=== PATIENT | male | born 1950 | race Caucasian/White ===

== ENCOUNTER 2017-06-23 10:45 | Emergency (ER) | payer OTHER, MEDICARE ==
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
[2017-06-23 13:24] VITALS: BP 104/66; PULSE 63; RESP 18; TEMP 98.1; O2SAT 94
== END 2017-06-23 13:25 | disposition home or self-care (01) ==
PROC: 0HQ0XZZ Repair Scalp Skin, External Approach (ICD-10-PCS; principal; 2017-06-23)
DX: S01.01XA Laceration without foreign body of scalp, initial encounter (principal); V18.4XXA Pedal cycle driver injured in noncollision transport accident in traffic accident, initial encounter; Y99.8 Other external cause status; Y93.55 Activity, bike riding

== ENCOUNTER 2017-07-28 07:10 | Inpatient (IN) | payer OTHER, MEDICARE ==
[~2017-07-28 07:10] MED LIST: ACETAMINOPHEN 325 MG TAB PO ONE; DEXAMETHASONE 4 MG/ML VIAL IVP ONE; FAMOTIDINE 20 MG TAB PO ONE; LIDOCAINE 1% 2 ML INJ ID PRN; LR 1,000 ML IV ONE; POVIDONE-IODINE 20 ML in SODIUM CL IRRIG SOLUTION 500 ML IRR ONE; ROPIVACAINE 0.2% 80 MG, EPINEPHrine 0.2 MG, KETOROLAC TROMETHAMINE 30 MG in BAG 0 ML IU ONE; TRANEXAMIC ACID 1,720 MG in NS 100 ML IV ONE; ceFAZolin 1 GM/5 ML SYR ONE; ceFAZolin 2 GM/DEXTROSE 100 ML IV ONE
--- NOTE | 2017-07-28 07:40 | PDHPUP ---
History & Physical Update H&P update statement: This history and physical update is based on an assessment of the patient which was completed after admission or registration (within 24 hours), but prior to the surgery/procedure. H&P update: H&P reviewed & patient examined, no change in patient's condition since H&P completed
[2017-07-28] MEDS ORDERED: MIDAZOLAM 2 MG/2 ML VIAL IVP ONE (07:46)
--- NOTE | 2017-07-28 07:48 | PDANEPAE ---
ANE History of Present Illness Patient presents for R CHEN ANE Past Medical History - Cardiovascular History Hx Hypertension: No Hx Arrhythmias: No Hx Chest Pain: No Hx Coronary Artery / Peripheral Vascular Disease: No Hx CHF / Valvular Disease: No Hx Palpitations: No - Pulmonary History Hx COPD: No Hx Asthma/Reactive Airway Disease: No Hx Recent Upper Respiratory Infection: No Hx Oxygen in Use at Home: No Hx Sleep Apnea: No Sleep Apnea Screening Result - Last Documented: Positive - Neurologic History Hx Cerebrovascular Accident: No Hx Seizures: No Hx Dementia: No - Endocrine History Hx Diabetes: No - Renal History Hx Renal Disorders: No - Liver History Hx Hepatic Disorders: No - Neurological & Psychiatric Hx Hx Neurological and Psychiatric Disorders: No - Cancer History Hx Cancer: No - Congenital Disorder History Hx Congenital Disorders: No - GI History GERD: mild Hx Gastrointestinal Disorders: Yes Gastrointestinal History Comment: ACID REFLUX OCCAS - Other Health History Other Health History: NEG - Chronic Pain History Chronic Pain: Yes (R HIP) - Surgical History Prior Surgeries: R LEG PIN & REMOVED. HIP FX & REPAIR R. HEMORRHOIDECTOMY. HIP REPLACEMENT L. RTC ANE Review of Systems Review of Systems: - Exercise capacity METS (RN): 4 METS ANE Patient History - Allergies Allergies/Adverse Reactions: No Known Allergies Allergy (Verified 06/23/17 10:54) - Home Medications Home medications: home medication list seen and reviewed Home Medications: Pantoprazole Sodium [Protonix] 20 mg PO DAILY 06/24/17 [Last Taken Unknown] - NPO status NPO Status: no food or drink >8 hours NPO Since - Liquids (Date): 07/27/17 NPO Since - Liquids (Time): 18:00 NPO Since - Solids (Date): 07/27/17 NPO Since - Solids (Time): 18:00 - Anes Hx Anes Hx: no prior problems - Smoking Hx Smoking Status: Never smoked - Family Anes Hx Family Hx Anesthesia Complications: NEG ANE Labs/Vital Signs - Vital Signs Blood Pressure: 126/75 Heart Rate: 58 Respiratory Rate: 16 O2 Sat (%): 94 Height: 175.26 cm Weight: 86.183 kg ANE Physical Exam - Airway Neck exam: FROM Mallampati Score: Class 2 Mouth exam: normal dental/mouth exam - Pulmonary Pulmonary: no respiratory distress - Cardiovascular Cardiovascular: regular rate and rhythym - ASA Status ASA Status: II ANE Anesthesia Plan Anesthesia Plan: spinal (RBA discussed, patient agrees to proceed)
[2017-07-28] MEDS ORDERED: fentaNYL 100 MCG/2 ML INJ ONE (07:49)
[2017-07-28] MEDS ORDERED: PROPOFOL/EMULSION 500 MG/50 ML BOTTLE IV ONE ×2 (07:49→08:45)
[2017-07-28] MEDS ORDERED: LIDOCAINE 2% 5 ML SDV ONE (08:17)
[2017-07-28] MEDS ORDERED: epHEDrine SULFATE 10 MG/ML SYR ONE (08:22)
[2017-07-28] MEDS ORDERED: PHENYLEPHRINE HCL 100 MCG/ML SYR ONE (08:23)
[2017-07-28] MEDS ORDERED: NALOXONE HCL 0.4 MG/ML INJ IVP PRN (08:58)
[2017-07-28] MEDS ORDERED: LR 500 ML IV PRN (09:13)
[2017-07-28] MEDS ORDERED: OXYCODONE/APAP 5/325 TAB PO PRN (09:13)
[2017-07-28] MEDS ORDERED: HYDROCODONE/APAP 5/325 TAB PO PRN (09:13)
[2017-07-28] MEDS ORDERED: ONDANSETRON 4 MG/2 ML VIAL IVP PRN ×2 (09:13→09:39)
[2017-07-28] MEDS ORDERED: fentaNYL 100 MCG/2 ML INJ IVP PRN (09:13)
--- NOTE | 2017-07-28 09:38 | POSTOPPROG ---
Post Op Note Date of Operation: 07/28/17 Surgeon: Ashok Green Medicaid Nurse: Que Singh/Indy Goddard Anesthesiologist: Joyce Ham Anesthesia: IV Sedation, Spinal Post-op Diagnosis: Right hip severe degenerative arthritis. Procedure: Right total hip arthroplasty. Inf/Abcess present in the surg proc area at time of surgery?: No EBL: 100-500
[2017-07-28] MEDS ORDERED: CYCLOBENZAPRINE 10 MG TAB PO PRN (09:39)
[2017-07-28] MEDS ORDERED: MAGNESIUM HYDROXIDE 30 ML UDCUP PO PRN (09:39)
[2017-07-28] MEDS ORDERED: PROMETHAZINE HCL 25 MG SUPPR PR PRN (09:39)
[2017-07-28] MEDS ORDERED: PROMETHAZINE HCL 25 MG/ML INJ IVP PRN (09:39)
[2017-07-28] MEDS ORDERED: DIPHENOXYLATE/ATROPINE LOMOTIL 1 TAB PO PRN (09:39)
[2017-07-28] MEDS ORDERED: TAPENTADOL HCL 50 MG TAB PO PRN (09:39)
[2017-07-28] MEDS ORDERED: oxyCODONE IR 5 MG TAB PO PRN (09:39)
[2017-07-28] MEDS ORDERED: ONDANSETRON DISINTEGRATING 4 MG TAB PO PRN (09:39)
[2017-07-28] MEDS ORDERED: LACTULOSE 20 GM/30 ML UDCUP PO PRN (09:39)
[2017-07-28] MEDS ORDERED: traMADol 50 MG TAB PO PRN (09:39)
[2017-07-28] MEDS ORDERED: METOCLOPRAMIDE 10 MG/2 ML VIAL IVP PRN (09:39)
[2017-07-28] MEDS ORDERED: diphenhydrAMINE 25 MG CAP PO PRN (09:39)
[2017-07-28] MEDS ORDERED: POLYETHYLENE GLYCOL 3350 17 GM PKT PO PRN (09:39)
[2017-07-28] MEDS ORDERED: KETOROLAC 30 MG/1 ML SDV IVP PRN (09:39)
[2017-07-28] MEDS ORDERED: BISACODYL 10 MG SUPP PR PRN (09:39)
[2017-07-28] MEDS ORDERED: TRANEXAMIC ACID 650 MG TAB PO SCH (09:45)
--- NOTE | 2017-07-28 10:03 | POSTANESTH ---
Post Anesthetic Evaluation Cardiovascular Status: Normal, Stable Respiratory Status: Normal, Stable Level of Consciousness/Mental Status: Mildly Sleepy, Arousable Pain Control: Adequate, Prn Tx Ordered Nausea/Vomiting Control: Adequate, Prn Tx Ordered Complications Possibly Related to Anesthesia: None Noted
--- NOTE | 2017-07-28 11:08 | GOP ---
[f rep st] OPERATIVE REPORT DATE OF OPERATION: 07/28/2017 SURGEON: Ashok Green MD BLISTER PACKING MACHINE TENDER: Que Singh CFA, and Indy Goddard RN. ANESTHESIA: A combination of Marcaine, spinal, and IV sedation. ANESTHESIOLOGIST: Juvencio Ham MD. PREOPERATIVE DIAGNOSIS: Right hip severe degenerative arthritis. POSTOPERATIVE DIAGNOSIS: Right hip severe degenerative arthritis. PROCEDURE PERFORMED: On 07/28/2017, a right total hip arthroplasty, ceramic femoral head on highly c ross-linked polyethylene cup liner. FINDINGS: DESCRIPTION OF PROCEDURE: The patient was given 2 g of IV Ancef preoperatively within 60 minutes of surgery. He also received IV tranexamic acid at a dose of 20 mg/kg. He was placed on the operating room table and given spinal anesthesia with Marcaine by Dr. Ham. He was then placed supine and giv en IV sedation. A Torres catheter was not used. He wore a ANGELIQUE stocking and SCD on the nonoperative l eg. He was rolled to the left lateral decubitus position. The position was secured with the pegboar d table attachment. An axillary roll was used, and all pressure points were carefully padded. I was careful to lock his pelvis in a rigid vertical position. His perineum was isolated with plastic adh esive drapes. The right hip and right lower extremity were prepped with ChloraPrep. They were drape d free using sterile sheets, stockinette, and Ioban plastic drape. The [employer] time-out was performed to verify the correct surgical side and site and the correct patient identity. The [place] time-out was also performed. I made a straight 5-inch oblique posterolateral hip skin incision. He had a previous midlateral inci lucina from previous open reduction, internal fixation of a subtrochanteric femur fracture. This incis ion was too far anterior to be incorporated in his total hip incision. The subcutaneous tissues were sharply divided and hemostasis was obtained using electrocautery. The fascia mecca was identified an d split along the axis of its fibers. I then curved posteriorly and proximally, and split the fascia of gluteus paola and bluntly split the muscle fibers in line with their orientation. The Charnley self-retaining retractor was inserted. His sciatic nerve was located, partially exposed, and protec angelique throughout the procedure. The external rotators and the posterior hip capsule were divided as se parate layers at the base of the femoral neck, tagged and reflected posteriorly. A smooth 8-inch Arden inmann pin was inserted vertically into the ilium, superior to the acetabulum. An 8-inch drill bit w as inserted vertically into the greater trochanter and parallel to the first pin. The distance betwe en the two was measured for leg length reference. The femoral head was dislocated posteriorly. Paula re degenerative changes were present on his femoral head. The femoral neck was osteotomized at the a ppropriate level and inclination. I was careful to preserve all the posterior capsule and most of the anterior capsule. The remnant of his damaged labrum was excised. I prepared the femur first. This allowed me to sheltered workshop executive director the amount of natural femoral neck anteversion. He had about 10 degrees of femoral neck anteversion. The canal was opened laterally with a box chi jolynn. I hand broached sequentially up to a size 8 with the Accolade II stem. I used a size 8 broach as a trial stem. I was careful to lateralize adequately. Appropriate retractors were inserted to expose the acetabulum. The acetabulum was reamed sequentiall y up to a size 55 mm. I selected a 56 mm Bessemer Tritanium solid-backed hemispherical shell. This w as tapped securely into place in the proper degree of inclination and anteversion. I used the transv erse acetabular ligament and other acetabular bony landmarks to help me properly orient the cup. Fix ation was very tight and supplemental screws were not necessary. He had some small posterior-inferio r osteophytes, which I removed with a rongeur. I performed a series of trial reductions to determine length and stability. I concluded that the siz e 8, high offset stem with a -2.5 mm neck length, a 36 mm head and a 10-degree lipped trial liner gav e me the proper combination of appropriate length and good anterior and posterior stability. He was a couple of millimeters short preoperatively, and I was intentionally lengthening him a small amount. The 10-degree lipped Bessemer X3 highly cross-linked polyethylene liner was inserted and tapped secure ly into place. I chose the Alfonso Secur-Fit Max stem in a size 8 with high offset. This was insert ed press-fit and was very tight. I did one final trial reduction and confirmed that the -2.5 mm neck length with a 36 mm head was the proper combination. The Bessemer Biolox Delta ceramic head with an outside diameter of 36 mm and a neck length of -2.5 mm was tapped securely onto the clean trunnion. The acetabulum was irrigated, cleaned, and the hip was reduced one final time. He had excellent ante rior and posterior stability and appropriate lengthening. 40 mL of the joint anesthetic cocktail was injected into the capsule, the deep musculature, and subcu taneous tissues around the skin edges. The joint was thoroughly irrigated one final time with a dilu te Betadine solution. His sciatic nerve was reinspected and looked unharmed. The external rotators and the posterior hip capsule were repaired in separate layers with #2 FiberWir e sutures through drill holes in the greater trochanter. This provided a very strong posterior capsu lar and external rotator repair. The fascia mecca was closed first with 2 interrupted [id number] FiberWire sutures, followed by a running #2 barbed Ethicon Stratafix PDO suture. Subcutaneous tissu es were closed with a running 0 barbed Ethicon Stratafix Monoderm suture. The skin was closed with a running 3-0 barbed Ethicon Stratafix Monoderm subcuticular suture. The skin edges were reapproximat ed and sealed with Dermabond glue. The wound was covered with a 9 cm x 25 cm Aquacel AG dressing. A long-leg ANGELIQUE stocking and SCD were applied to his right lower extremity. He wore a stocking and SC D on the opposite leg during the procedure. An abduction pillow was placed between his knees. He wa s awakened from anesthesia and rolled to the supine position on his [employer]. He was taken to PACU in satisfactory condition. There were no recognized intraoperative complications. The estimat ed blood loss was about 400 mL. The sponge and needle counts were correct on 2 occasions. I used a Alfonso Tritanium hemispherical solid backed acetabular shell with an outside diameter of 56 mm. The liner was a Bessemer X3 10-degree lipped highly cross-linked liner with an inside diameter o f 36 mm. The femoral component was a press-fit Bessemer Accolade II stem with a high offset in size 8 . The femoral head was a Bessemer Biolox Delta ceramic head with a -2.5 mm neck length and a 36 mm ou tside diameter. Que Singh and Indy Goddard acted as surgical first assistants. [facility] of the procedure. /[id number]/MODL
[2017-07-28 11:29] VITALS: RESP 16
[2017-07-28] MEDS: TRANEXAMIC ACID 650 MG TAB PO SCH ×2 (13:52→20:16)
[2017-07-28] MEDS: ACETAMINOPHEN 325 MG TAB PO SCH ×2 (13:53→18:39)
[2017-07-28] MEDS: ceFAZolin 2 GM/DEXTROSE 100 ML IV SCH ×2 (15:01→22:10)
[2017-07-28] MEDS: LR 1,000 ML IV SCH (15:01)
[2017-07-28] MEDS: SENNOSIDES/DOCUSATE SODIUM TAB PO SCH (20:20)
[2017-07-28] MEDS: ASPIRIN 325 MG TAB PO SCH (20:20)
[2017-07-28] MEDS: TEMAZEPAM 15 MG CAP PO PRN ×2 (20:20→22:10)
[2017-07-28] MEDS: FAMOTIDINE 20 MG TAB PO SCH (20:20)
[2017-07-29] MEDS: LR 1,000 ML IV SCH (00:02)
[2017-07-29] MEDS: ACETAMINOPHEN 325 MG TAB PO SCH ×2 (00:02→06:09)
[2017-07-29] MEDS: TRANEXAMIC ACID 650 MG TAB PO SCH (04:15)
[2017-07-29 04:20] VITALS: BP 110/60; PULSE 56; TEMP 97.7; O2SAT 97
[2017-07-29 05:23] LABS: HEMATOCRIT 36.1 % (40.0-51.0); HEMOGLOBIN 11.7 g/dL (13.7-17.5)
--- NOTE | 2017-07-29 07:18 | SOAPPROG ---
SOAP Progress Note Assessment/Plan: Assessment: Afebrile. Awake and alert. Moderate pain. H/H is ok. Sciatic nerve intact. Has been walking in cerda. Films look good. Plan: Up with PT. DC later today 07/29/17 07:17 Objective: Vital Signs Temp Pulse Resp BP Pulse Ox 36.5 C 56 L 16 110/60 97 07/29/17 04:00 07/29/17 04:00 07/29/17 04:00 07/29/17 04:00 07/29/17 04:00 Laboratory Results 07/29/17 04:14 07/28/17 07/29/17 07/30/17 05:59 05:59 05:59 Intake Total 2230 Output Total 1025 Balance 1205 ICD10 Worksheet Patient Problems: Problems Problem Status Onset Osteoarthritis of right hip Acute
--- NOTE | 2017-07-29 07:39 | GDS ---
[f rep st] DISCHARGE SUMMARY ADMISSION DIAGNOSIS: Right hip degenerative arthritis. DISCHARGE DIAGNOSIS: Right hip degenerative arthritis. OPERATION PERFORMED: July 28, 2017, a right total hip arthroplasty. POSTOPERATIVE COMPLICATIONS: None. CONDITION ON DISCHARGE: Improved. DESCRIPTION OF HOSPITAL COURSE: The patient was admitted to the hospital on the morning of surgery. The same day, under a combination of Marcaine, spinal, and IV sedation, he underwent a right total h ip arthroplasty. Postoperatively, he was treated with multimodal DVT prophylaxis, including aspirin and early mobilization. On the first postoperative day his hemoglobin and hematocrit were 11.7 and 3 6.1. He was seen by Physical Therapy and made good progress with ambulation and stairs. By the time of discharge, he was afebrile, his wound was dry, and he was independent walking. DISPOSITION: The patient is discharged to his home. He will go to outpatient physical therapy in my office. He may progress to full weightbearing on the right as tolerated. Use an abduction pillow i n bed for 3 weeks. ANGELIQUE stockings for 1 week. Continue aspirin 325 mg p.o. daily for 21 days. I dontae l see him back in the office on August 16, 2017. If there are any problems, he is to call me at the office. /[id number]/MODL
[2017-07-29] MEDS: FAMOTIDINE 20 MG TAB PO SCH (08:37)
[2017-07-29] MEDS: ASPIRIN 325 MG TAB PO SCH (08:37)
[2017-07-29] MEDS: SENNOSIDES/DOCUSATE SODIUM TAB PO SCH (08:37)
[2017-07-29] MEDS ORDERED: FERROUS SULFATE 140 MG TAB.ER PO SCH (09:00)
--- NOTE | 2017-07-29 09:51 | ASMTCMCOM ---
CM Note CM Note Notes: Chart reviewed. Patient s/p hip. Doing well per therapies. No home needs identified at this time. Met with patient to review dc poc. Patient verbalizes he is set up for outpatient PT at Dr. Martinez office. CM available should needs arise. Date Signed: 07/29/2017 09:50 AM Electronically Signed By:Rose Villalobos RN
--- NOTE | 2017-07-29 11:27 | ASDISCHSUM ---
Discharge Information Plan Status:Home with No Needs Medically Cleared to Leave: Discharge Date:07/29/2017 10:28 AM CM D/C Disposition:Home, Routine, Self-Care ADT D/C Disposition:Home, Routine, Self-Care Projected Discharge Date:07/29/2017 10:28 AM Transportation at D/C: Discharge Delay Reason: Follow-Up Date:07/29/2017 10:28 AM Discharge Slot: Final Diagnosis: Placement Information Patient Contact Information Contact Name:SIRISHA Relationship: Address:[address] City:[place] Alternate Phone: [facility]/Zip Code:[place] [address] Email: Financial Information Financial Class: Primary Plan Desc:MEDICARE INPATIENT Primary Plan Number:[id number] Secondary Plan Desc:[employer]/MDR SUPPLEMENT Secondary Plan Number:[id number] Assessment Information [facility] CM Progress Note CM Note CM Note Notes: Chart reviewed. Patient s/p hip. Doing well per therapies. No home needs identified at this time. Met with patient to review dc poc. Patient verbalizes he is set up for outpatient PT at Dr. Martinez office. CM available should needs arise. Date Signed: 07/29/2017 09:50 AM Electronically Signed By:Rose Villalobos RN Intervention Information
== END 2017-07-29 10:28 | disposition home or self-care (01) | DRG 470 ==
LOC: F3N 07:10
PROVIDERS: ADMIT Orthopaedic Surgery; ATTEND Orthopaedic Surgery
PROC: 0SR904Z Replacement of Right Hip Joint with Ceramic on Polyethylene Synthetic Substitute, Open Approach (ICD-10-PCS; principal; 2017-07-28 07:15)
DX: M16.11 Unilateral primary osteoarthritis, right hip (principal)
CPT/HCPCS: 97110-GP; 97116-GP; 97161-GP; 97165-GO; G8978-GP-CI; G8979-GP-CI; G8980-GP-CI; G8987-GO-CI; G8988-GO-CI; G8989-GO-CI; J0171; J0690; J1100; J1885; J2250; J2370; J2704; J2795; J3010

== ENCOUNTER → 2018-10-12 | Outpatient (CLI) | payer OTHER, MEDICARE ==
[~2018-10-12] MED LIST changes: -ACETAMINOPHEN 325 MG TAB PO ONE; -DEXAMETHASONE 4 MG/ML VIAL IVP ONE; -FAMOTIDINE 20 MG TAB PO ONE; +IOPAMIDOL (ISOVUE-300) 100 ML BTL ONE; -LIDOCAINE 1% 2 ML INJ ID PRN; -LR 1,000 ML IV ONE; -POVIDONE-IODINE 20 ML in SODIUM CL IRRIG SOLUTION 500 ML IRR ONE; -ROPIVACAINE 0.2% 80 MG, EPINEPHrine 0.2 MG, KETOROLAC TROMETHAMINE 30 MG in BAG 0 ML IU ONE; -TRANEXAMIC ACID 1,720 MG in NS 100 ML IV ONE; -ceFAZolin 1 GM/5 ML SYR ONE; -ceFAZolin 2 GM/DEXTROSE 100 ML IV ONE
== END | disposition home or self-care (01) ==
LOC: FIMAGING 10:40
PROVIDERS: ATTEND Internal Medicine
DX: R10.33 Periumbilical pain (principal); R93.5 Abnormal findings on diagnostic imaging of other abdominal regions, including retroperitoneum; K59.00 Constipation, unspecified; K76.9 Liver disease, unspecified
CPT/HCPCS: 74177; Q9967

== ENCOUNTER → 2018-12-09 | Outpatient (CLI) | payer OTHER, MEDICARE ==
[~2018-12-09] MED LIST changes: +GADOBUTROL 10 ML VIAL IVP ONE; -IOPAMIDOL (ISOVUE-300) 100 ML BTL ONE
== END ==
LOC: FIMAGING 12:34
PROVIDERS: ATTEND Neurological Surgery
DX: Q28.2 Arteriovenous malformation of cerebral vessels (principal)
CPT/HCPCS: 70553; A9585; 82565-PO